=== PATIENT | female | born 1980 | race Caucasian/White ===

== ENCOUNTER 2022-04-24 23:46 | Emergency (ER) | payer OTHER, SELFPAY ==
[2022-04-24 23:53] VITALS: BP 151/90; PULSE 98; RESP 16; TEMP 36.1; O2SAT 100
[2022-04-25] MEDS: HYDROcodone/acetaminophen (*CRX) 5-325 MG TABLET 1 TAB PO (01:53)
--- NOTE | 2022-04-25 02:47 | ED.SKABFB ---
HPI - Skin/Abscess/Foreign Bdy General Chief complaint: Skin/Abscess/Foreign Body Stated complaint: WOUND TO L NECK ?SPIDER BITE Time Seen by Provider: 04/25/22 01:06 History of Present Illness HPI narrative: Patient is a 41-year-old female who presents ER with swelling to the left neck. Worsening over the last 2 days. She is concerned she was bit by a spider. There is been some mild drainage. No fevers or chills or sweats. No difficulty breathing or swallowing. She is able to perform range of motion exercises. Related Data Allergies Allergy/AdvReac Type Severity Reaction Status Date / Time No Known Allergies Allergy Mild Verified 04/25/22 01:53 Review of Systems Review of Systems: All systems reviewed & are unremarkable except as noted in HPI and below Constitutional: Constitutional: Denies chills, Denies fatigue and Denies fever(s) ENT: Denies dysphagia, Denies nasal congestion and Denies sore throat Respiratory: Respiratory: Denies cough and Denies dyspnea Gastrointestinal: Gastrointestinal: Denies nausea and Denies vomiting Integumentary/Breasts: Skin/Breast: Denies pruritus and Reports erythema Comments: Abscess and swelling left neck PMFSH Past Medical History Medical History (Updated 04/25/22 @ 03:29 by Jose Best MD) History of right above knee amputation Surgical History Surgical History (Updated 04/25/22 @ 03:27 by Jose Best MD) History of tubal ligation Exam Narrative: GENERAL: Well-appearing, well-nourished, and in no acute distress. HEAD: Normocephalic, atraumatic. ENT: Mucous membranes moist. NECK: Supple. Abscess left neck with induration erythema and the structures scattered at the top. No fluctuance. Full range of motion of the neck. CHEST: Clear to auscultation. No respiratory distress. HEART: Regular rate and rhythm. Normal peripheral pulses. NEURO: Alert and oriented x3. PSYCH: Normal mood and affect. Course Course Emergency Course: Small amount of abscess drained. Will place on Bactrim for cellulitis/abscess. Remove packing in 2 days. Return to ER if worsening. Vital Signs Vital signs: Vital Signs Temperature 97 F L 04/24/22 23:53 Pulse Rate 98 04/24/22 23:53 Respiratory Rate 16 04/24/22 23:53 Blood Pressure 151/90 H 04/24/22 23:53 Pulse Oximetry 100 04/24/22 23:53 Oxygen Delivery Room Air 04/24/22 23:53 Temperature 97 F L 04/24/22 23:53 Pulse Rate 88 04/25/22 03:20 Respiratory Rate 20 04/25/22 03:20 Blood Pressure 155/98 H 04/25/22 03:20 Pulse Oximetry 100 04/25/22 03:20 Oxygen Delivery Room Air 04/24/22 23:53 Procedures Abscess I/D neck: Date of Incision: 04/25/22 Time of Incision: 02:50 Side (if applicable): left Local Anesthetic: lidocaine 1% and with epi Amount of anesthesia used (mL): 4 Technique: incised with #11 blade and probed loculations Irrigation: No Packing used?: iodoform I&D Results: Pus Complications: pain Discharge Plan Discharge Clinical Impression: Abscess of skin or subcutaneous tissue, Cellulitis Patient Disposition: Home, Self-Care Condition: Stable Instructions: Cellulitis (ED), Abscess (ED) Additional Instructions: Return to the ER if you have increased pain, increased swelling, you cannot breathe, you cannot swallow, you have additional concerns. Prescriptions: New sulfamethoxazole-trimethoprim [Bactrim] 400-80 mg tablet 1 tablet PO BID Qty: 20 0RF hydrocodone-acetaminophen 5-325 mg tablet 1 tablet PO Q6H PRN (Reason: pain) Qty: 14 0RF Follow-up/Referrals: Cholo Etsrella MD [Primary Care Provider] - 1 Week
[2022-04-25] MEDS: SULFAMETHOXAZOLE/TRIMETHOPRIM 800/160 MG DS TABLET 1 TAB PO (03:17)
[2022-04-25 03:20] VITALS: BP 155/98; PULSE 88; RESP 20; O2SAT 100
== END 2022-04-25 03:34 | disposition home or self-care (01) ==
PROVIDERS: Emergency Provider Emergency Medicine; PCP Emergency Medicine
DX: L02.11 Cutaneous abscess of neck (principal); L03.221 Cellulitis of neck
CPT/HCPCS: 10061; 99283; A9270